=== PATIENT | female | born 1935 | race Caucasian/White ===

== ENCOUNTER → 2016-05-15 | Outpatient (CLI) | payer OTHER ==
[~2016-05-15] MED LIST: ALEN70SO PO; ASPIRIN PO; ATOR1TAB19 PO; CALCTAB28 PO; CIPR500T4; COUM1TAB17 PO; ECOT325T5; FLAG500T; GLUC1CAP9 PO; GLUCOSAMINE-CHONDROI; LASI40TA; LEVA500T; LEVO88TA3 PO; LIPI10TA; LIPI10TA PO; LIPI20TA; LISI20TA5; LOSA50TA21 PO; LOVE0.4I2 SC; MULT1TAB8 PO; NON-325T2 PO; OYST500T; PAIN325T; POTA20TA2; SPIR25TA2; SPIR25TA2 PO; SYNT88TA; THERGRAN; TUMS500C; VITAMIN D; [UNRECOGNIZED DRUG - OTHER]; [UNRECOGNIZED DRUG - OTHER] PO
--- NOTE | 2016-05-17 10:01 | DEXA ---
AP SPINE L1 - L4 1.313 1.0 2.5 LT FEMUR TOTAL 0.944 -0.5 1.4 RT FEMUR TOTAL 0.910 -0.8 1.2 TOTAL BODY TOTAL OTHER DUAL FEMUR FRAX* ASSESSMENT Risk factors: History adult fracture, history rheumatoid arthritis. 10 year probability of fracture Major osteoporotic fracture 28.9 % Hip fracture 0.5 % COMMENTS: Normal bone densitometry of the spine. There is low bone density of the hips. The increased density of the spine does not represent a significant change. The increased density of the left hip does represent a significant change. The increased density of the right hip does not represent a significant change. The density of the spine has increased 4.6% since the initial exam on 2002. The spine density has increased 1.9% since the most recent exam on 10/03/2011. The density of the left hip has increased 2.6% since the initial exam on 2002. The density of the left hip has increased 4.3% since the most recent exam on . The density of the right hip has decreased 7.5% since the initial exam on 2002. The density of the right hip has increased 0.1% since the most recent exam on . FOLLOW-UP: Recommendation for the next bone density exam: 2 years. ANATOLY
== END ==
LOC: M WHC 14:22
PROVIDERS: ATTEND Internal Medicine
DX: M85.9 Disorder of bone density and structure, unspecified (principal); Z78.0 Asymptomatic menopausal state

== ENCOUNTER → 2016-06-18 | Outpatient (CLI) | payer OTHER ==
--- NOTE | 2016-06-18 19:50 | REP ---
PA and lateral chest: Comparisons are the PA and lateral chest of 06/22/[address] of 03/02/2014. There is chronic cardiomegaly, unchanged from both prior studies. There are calcified granulomas in the right upper lobe, right lower lobe and right hilus, unchanged. There is chronic fibro linear scarring inferiorly in the left lung, unchanged. There is focal right perihilar discoid atelectasis as an interval change. The alber and mediastinum are unchanged. There is a single lead pacemaker, unchanged. 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 Impression: No acute cardiopulmonary findings except for minor discoid atelectasis in the right parahilar zone. Signed by Tawanda Kamara MD 06/18/2016 07:41 P
== END ==
LOC: M RAD 17:32
PROVIDERS: ATTEND Internal Medicine
DX: R05 Cough (principal)

== ENCOUNTER → 2017-01-08 | Outpatient (CLI) | payer OTHER ==
[~2017-01-08] MED LIST changes: -LOSA50TA21 PO; +LOSA50TA5 PO
--- NOTE | 2017-01-08 20:58 | REP ---
Clinical: Cough. Technique: PA and lateral. Comparison: 06/18/2016. Findings: Chronic bibasilar fibroatelectatic changes are appreciated along with scattered relatively stable calcified granulomata. Superimposed left lower lobe infiltrate/atelectasis cannot be excluded. Moderate hiatal hernia suggested. Single lead pacemaker in satisfactory position overlying the right ventricle. No definite effusion. No pneumothorax. Skeletal structures demonstrate age-related degenerative changes and osteopenia. Impression: Chronic relatively stable changes compared to 06/18/2016. Superimposed atelectasis/acute process cannot be excluded, and if the patient remains symptomatic chest CT should be considered for further investigation. Signed by Josh Herron MD 01/08/2017 08:50 P
== END ==
LOC: M RAD 17:00
PROVIDERS: ATTEND Internal Medicine
DX: R05 Cough (principal); R06.2 Wheezing

== ENCOUNTER → 2017-07-04 | Outpatient (REF) | payer OTHER | LOC: M LAB REF 10:26 | DX: N39.0 Urinary tract infection, site not specified (principal) | CPT/HCPCS: 87186 ==

== ENCOUNTER → 2018-01-20 | Outpatient (REF) | payer OTHER | LOC: M LAB REF 11:59 | DX: N39.3 Stress incontinence (female) (male) (principal) | CPT/HCPCS: 87186 ==